=== PATIENT | male | born 1985 | race Caucasian/White ===

== ENCOUNTER 2019-05-16 09:53 | Emergency (ER) | payer SELFPAY ==
[~2019-05-16] VITALS: Ht 170.2 cm; Wt 101.7 kg
[~2019-05-16 09:53] MED LIST: HYDR-3980 PO; IBUP-1561 PO; NALO4SPR NS
[2019-05-16 09:54] VITALS: Ht 170.2 cm; Wt 101.7 kg
[2019-05-16] MEDS ORDERED: HYDROCODONE/APAP (10/325) TAB PO ONE ×3 (10:30→16:30)
[2019-05-16] MEDS ORDERED: morphine 4 MG/ML VIAL IV STA ×2 (13:50→15:14)
[2019-05-16] MEDS ORDERED: SOD CHLORIDE 0.9% 500 ML IV ONE (14:00)
[2019-05-16 16:46] VITALS: BP 131/85; PULSE 58; RESP 18
== END 2019-05-16 16:49 | disposition home or self-care (01) ==
LOC: FTE 09:53
DX: S52.592A Other fractures of lower end of left radius, initial encounter for closed fracture (principal); W11.XXXA Fall on and from ladder, initial encounter; Y92.9 Unspecified place or not applicable
CPT/HCPCS: 29125; 73080; 73090; 73110; 73130; 80053; 85025; 85610; 85730; 96361; 96374; 96375; 99284; J2270; J7040